=== PATIENT | female | born 1950 | race Caucasian/White ===

== ENCOUNTER 2017-06-04 10:06 | Emergency (ER) | payer OTHER ==
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
== END 2017-06-04 11:17 | disposition home or self-care (01) ==
LOC: SCSER 10:06
DX: S20.212A Contusion of left front wall of thorax, initial encounter (principal); E78.5 Hyperlipidemia, unspecified; I10 Essential (primary) hypertension; V43.52XA Car driver injured in collision with other type car in traffic accident, initial encounter; Z79.899 Other long term (current) drug therapy
CPT/HCPCS: 71046; 93005